=== PATIENT | female | born 2000 | race African-American/Black ===

== ENCOUNTER 2023-04-28 23:10 | Emergency (ER) | payer MEDICAID ==
[~2023-04-28] VITALS: Ht 170.2 cm; Wt 59.0 kg
[2023-04-28 23:21] VITALS: TEMP 98.2; O2SAT 100
[2023-04-29] MEDS ORDERED: IBUP-2028 MT (02:21)
[2023-04-29] MEDS ORDERED: TOPUD PO (02:21)
[2023-04-29] MEDS ORDERED: AMOX1TAB16 MT (02:21)
[2023-04-29 02:25] VITALS: BP 120/84; PULSE 106; RESP 18
[2023-04-29] MEDS: IBUPROFEN 400MG TABLET PO ONE (02:25)
[2023-04-29] MEDS: HYDROCODONE/ACETAMINOPHEN 5/325MG TABLET PO ONE (02:25)
[2023-04-29] MEDS: AMOXICILLIN/POTASSIUM CLAVULANATE 875/125MG TAB PO ONE (02:25)
== END 2023-04-29 02:40 | disposition home or self-care (01) ==
LOC: ER 23:10
DX: S61.451A Open bite of right hand, initial encounter (principal); W55.01XA Bitten by cat, initial encounter; Y93.89 Activity, other specified; Y92.89 Other specified places as the place of occurrence of the external cause; Y99.8 Other external cause status
CPT/HCPCS: 73130; 99284